=== PATIENT | female | born 1985 | race Caucasian/White ===

== ENCOUNTER 2018-04-06 18:24 | Emergency (ER) | payer OTHER, MEDICAID, SELFPAY ==
[2018-04-06 18:31] VITALS: BP 124/80; PULSE 79; RESP 20; O2SAT 100
[2018-04-06] MEDS: diazePAM 2 MG TABLET PO (20:26)
[2018-04-06 20:59] VITALS: BP 116/54; PULSE 81; RESP 14; O2SAT 100
--- NOTE | 2018-04-13 18:39 | ED.PSYCH ---
HPI - Psych General Chief Complaint: Psychiatric Symptoms Stated Complaint: DEPRESSION Time Seen by Provider: 04/06/18 18:43 Source: patient Mode of arrival: ambulatory Limitations: no limitations History of Present Illness HPI Narrative: patient states that she has been feeling depressed and anxious since losing her this past winter. She states that she feels overwhelmed sometimes as a working single mother. She states that she does not feel she needs inpatient management, but needs more resources as an outpatient. She would like to see a mental health professional. Patient states that even small things, like having to go through all of her late 's things, have been weighing on her. She states she does have a supportive jewish and two supportive pastors, but she feels bad asking people for help. Patient denies any suicide attempts. She denies serious thoughts of suicide. MD complaint: feels depressed Relieving factors: none ( patient does note that her child is a preventative factor) Context: other ( see above) Associated symptoms: denies other symptoms Treatments prior to arrival: none Related Data Home Medications Medication Instructions Recorded Confirmed sertraline 100 mg PO QDAY #0 09/09/17 Previous Rx's Medication Instructions Recorded diazepam [Valium] 5 mg PO Q8H #14 tab 04/06/18 Allergies Allergy/AdvReac Type Severity Reaction Status Date / Time penicillin G [PENICILLIN G] Allergy Unknown Unverified 11/10/17 12:28 sulfamethoxazole Allergy Unknown Unverified 11/10/17 12:28 [From ] trimethoprim [From ] Allergy Unknown Unverified 11/10/17 12:28 Review of Systems Review of Systems All systems reviewed & are unremarkable except as noted in HPI and below Constitutional Denies chills, Denies fever(s), Denies lethargy and Denies weakness Eyes Denies change in vision, Denies eye discharge, Denies irritation and Denies loss of vision ENT Ears, Nose, Mouth, and Throat: Denies change in voice, Denies neck pain and Denies sore throat Cardiovascular Denies chest pain, Denies irregular heart rhythm, Denies lightheadedness, Denies palpitations, Denies dyspnea, Denies dyspnea on exertion and Denies orthopnea Respiratory Denies cough, Denies dyspnea, Denies dyspnea on exertion and Denies wheezing Gastrointestinal Gastrointestinal: Denies abdominal pain, Denies change in bowel habits, Denies diarrhea, Denies nausea and Denies vomiting Genitourinary Denies hematuria, Denies flank pain, Denies urinary incontinence and Denies urinary urgency Musculoskeletal Denies neck pain Integumentary/Breasts Denies pruritus, Denies erythema, Denies rash and Denies wounds Neurologic Denies confusion, Denies loss of vision and Denies weakness Psychiatric Reports anxiety, Denies confusion, Reports depression, Denies homicidal ideation and Denies suicidal ideation Endocrine Denies palpitations Hematologic/Lymphatic Denies easy bruising Allergic/Immunologic Denies wheezing [facility] Medical History Depression (Acute) Anxiety (Acute) Surgical History No pertinent past surgical history (Acute) Social History Smoking Status: Former smoker Exam Initial Vital Signs Initial Vital Signs: Vital Signs Pulse Rate 79 04/06/18 18:31 Respiratory Rate 20 04/06/18 18:31 Blood Pressure 124/80 04/06/18 18:31 Pulse Oximetry 100 04/06/18 18:31 Const General: cooperative and well developed Nutritional Appearance: well nourished Orientation: alert, awake, oriented x3 and not confused HENGA Head: normocephalic and atraumatic Ears: external ears normal Nose: external nose normal and No nasal discharge Face and sinus: face symmetric and No dry mucous membranes Mouth: oral mucosae normal and moist mucous membranes Eyes General: appearance normal, both eyes and all related structures Eyelids: eyelids normal Conjunctivae: conjunctivae normal Sclera: sclerae normal Pupils: PERRL EOM: EOM intact bilaterally Neck Neck: normal visual inspection, trachea midline, No lymphadenopathy, No midline deformity and No JVD Lymphatic: No lymphedema Chest Chest: normal inspection of the chest Resp Effort & Inspection: normal respiratory effort, able to speak in complete sentences, no respiratory distress and no use of accessory muscles Auscultation: clear to auscultation bilaterally, no rales, no rhonchi and no wheezes Cardio Rate: regular rate Rhythm: regular rhythm Heart Sounds: no click, no gallops, no murmurs and no rubs Pulses: normal peripheral pulses GI Inspection: non-distended Palpation: soft, no hepatosplenomegaly, No guarding, No pulsatile mass and No tender Auscultation: normal bowel sounds Back/Spine/Pelvis Back: No CVA tenderness Cervical Spine: cervical ROM normal and No pain with cervical ROM Thoracic/Lumbar Spine: thoracic and lumbar spine normal to inspection Skin General: no rashes or lesions noted, No jaundice and No petechiae Neuro General: alert, oriented x3, gait normal and no focal motor deficits Speech: speech normal Extrem General: full ROM, no clubbing, cyanosis or edema, no pedal edema and no calf tenderness Psych Appearance: well kempt Mental Status: mental status grossly normal Attitude: cooperative Thought Content: normal and suicidality Judgment: judgment good Other: The patient is intermittently tearful. Course Course Narrative: I did spend quite a bit of time speaking with this patient about outpatient care options, as well as the need to take advantage of the support she already has. I have discussed with her that she should speak with her pastors about her need to go through her 's things, and see if a group from the jewish would be willing to mobilize and help her under take this task. The patient states she believes her jewish would gladly help her. I have also discussed with her that perhaps if she has an exercise partner, such as her [id number], who she has stated is supportive of her, she will be able to be motivated to get out and get exercise which will also be good for her mental health. We have discussed follow up with [facility] and primary care. Patient is agreeable to all of these plans. Orders Ordered: Discontinued Medications Diazepam (Valium) 2 mg PO NOW ONE Stop: 04/06/18 19:46 Last Admin: 04/06/18 20:26 Dose: 2 mg MDM - Psych Medical Records Attestation: I reviewed the patient's medical records. Discharge Plan Departure Patient Disposition: Home Clinical Impression: Depression, Anxiety Discharge Date/Time: 04/06/18 21:05 Interventions: ED Discharge Assessment Last Done: 04/06/18 20:59 Instructions: DI for Depression -- Adult Activity Restrictions/Additional Instructions: As we have discussed, it may be helpful for you to follow up with a mental health facility that can better served your needs. For now you should continue the medications are on, but you may take Valium as needed for anxiety, especially in the evening. Please reach out to your pastors and family members to help you with some of the other tasks that are causing ongoing stress, as well as for support and beneficial activities such as getting exercise. If at any time you feel that you are danger to yourself, please return to the Emergency Department without delay. Prescriptions: New diazepam [Valium] 2 mg tablet 5 mg PO Q8H Qty: 14 RF: 0 No Action sertraline 100 MG tablet 100 mg PO QDAY Qty: 0 RF: 0 Referrals: [facility] [Provider Group] [facility] [Provider Group] [facility] [Outside] ( Please walk in as soon as possible for an initial intake and evaluation.) Jarrell Denny MD [Non-Staff] - Haylee Pugh DO [Non-Staff] -
--- NOTE | 2018-04-13 18:46 | ED_ITS ---
HPI - Psych General Chief Complaint: Psychiatric Symptoms Stated Complaint: DEPRESSION Time Seen by Provider: 04/06/18 18:43 Source: patient Mode of arrival: ambulatory Limitations: no limitations History of Present Illness HPI Narrative: patient states that she has been feeling depressed and anxious since losing her this past winter. She states that she feels overwhelmed sometimes as a working single mother. She states that she does not feel she needs inpatient management, but needs more resources as an outpatient. She would like to see a mental health professional. Patient states that even small things, like having to go through all of her late 's things, have been weighing on her. She states she does have a supportive christian and two supportive pastors, but she feels bad asking people for help. Patient denies any suicide attempts. She denies serious thoughts of suicide. MD complaint: feels depressed Relieving factors: none ( patient does note that her child is a preventative factor) Context: other ( see above) Associated symptoms: denies other symptoms Treatments prior to arrival: none Related Data Home Medications Medication Instructions Recorded Confirmed sertraline 100 mg PO QDAY #0 09/09/17 Previous Rx's Medication Instructions Recorded diazepam [Valium] 5 mg PO Q8H #14 tab 04/06/18 Allergies Allergy/AdvReac Type Severity Reaction Status Date / Time penicillin G [PENICILLIN G] Allergy Unknown Unverified 11/10/17 12:28 sulfamethoxazole Allergy Unknown Unverified 11/10/17 12:28 [From ] trimethoprim [From ] Allergy Unknown Unverified 11/10/17 12:28 Review of Systems Review of Systems All systems reviewed & are unremarkable except as noted in HPI and below Constitutional Denies chills, Denies fever(s), Denies lethargy and Denies weakness Eyes Denies change in vision, Denies eye discharge, Denies irritation and Denies loss of vision ENT Ears, Nose, Mouth, and Throat: Denies change in voice, Denies neck pain and Denies sore throat Cardiovascular Denies chest pain, Denies irregular heart rhythm, Denies lightheadedness, Denies palpitations, Denies dyspnea, Denies dyspnea on exertion and Denies orthopnea Respiratory Denies cough, Denies dyspnea, Denies dyspnea on exertion and Denies wheezing Gastrointestinal Gastrointestinal: Denies abdominal pain, Denies change in bowel habits, Denies diarrhea, Denies nausea and Denies vomiting Genitourinary Denies hematuria, Denies flank pain, Denies urinary incontinence and Denies urinary urgency Musculoskeletal Denies neck pain Integumentary/Breasts Denies pruritus, Denies erythema, Denies rash and Denies wounds Neurologic Denies confusion, Denies loss of vision and Denies weakness Psychiatric Reports anxiety, Denies confusion, Reports depression, Denies homicidal ideation and Denies suicidal ideation Endocrine Denies palpitations Hematologic/Lymphatic Denies easy bruising Allergic/Immunologic Denies wheezing [facility] Medical History Depression (Acute) Anxiety (Acute) Surgical History No pertinent past surgical history (Acute) Social History Smoking Status: Former smoker Exam Initial Vital Signs Initial Vital Signs: Vital Signs Pulse Rate 79 04/06/18 18:31 Respiratory Rate 20 04/06/18 18:31 Blood Pressure 124/80 04/06/18 18:31 Pulse Oximetry 100 04/06/18 18:31 Const General: cooperative and well developed Nutritional Appearance: well nourished Orientation: alert, awake, oriented x3 and not confused HENVA Head: normocephalic and atraumatic Ears: external ears normal Nose: external nose normal and No nasal discharge Face and sinus: face symmetric and No dry mucous membranes Mouth: oral mucosae normal and moist mucous membranes Eyes General: appearance normal, both eyes and all related structures Eyelids: eyelids normal Conjunctivae: conjunctivae normal Sclera: sclerae normal Pupils: PERRL EOM: EOM intact bilaterally Neck Neck: normal visual inspection, trachea midline, No lymphadenopathy, No midline deformity and No JVD Lymphatic: No lymphedema Chest Chest: normal inspection of the chest Resp Effort & Inspection: normal respiratory effort, able to speak in complete sentences, no respiratory distress and no use of accessory muscles Auscultation: clear to auscultation bilaterally, no rales, no rhonchi and no wheezes Cardio Rate: regular rate Rhythm: regular rhythm Heart Sounds: no click, no gallops, no murmurs and no rubs Pulses: normal peripheral pulses GI Inspection: non-distended Palpation: soft, no hepatosplenomegaly, No guarding, No pulsatile mass and No tender Auscultation: normal bowel sounds Back/Spine/Pelvis Back: No CVA tenderness Cervical Spine: cervical ROM normal and No pain with cervical ROM Thoracic/Lumbar Spine: thoracic and lumbar spine normal to inspection Skin General: no rashes or lesions noted, No jaundice and No petechiae Neuro General: alert, oriented x3, gait normal and no focal motor deficits Speech: speech normal Extrem General: full ROM, no clubbing, cyanosis or edema, no pedal edema and no calf tenderness Psych Appearance: well kempt Mental Status: mental status grossly normal Attitude: cooperative Thought Content: normal and suicidality Judgment: judgment good Other: The patient is intermittently tearful. Course Course Narrative: I did spend quite a bit of time speaking with this patient about outpatient care options, as well as the need to take advantage of the support she already has. I have discussed with her that she should speak with her pastors about her need to go through her 's things, and see if a group from the christian would be willing to mobilize and help her under take this task. The patient states she believes her christian would gladly help her. I have also discussed with her that perhaps if she has an exercise partner, such as her [id number], who she has stated is supportive of her, she will be able to be motivated to get out and get exercise which will also be good for her mental health. We have discussed follow up with [facility] and primary care. Patient is agreeable to all of these plans. Orders Ordered: Discontinued Medications Diazepam (Valium) 2 mg PO NOW ONE Stop: 04/06/18 19:46 Last Admin: 04/06/18 20:26 Dose: 2 mg MDM - Psych Medical Records Attestation: I reviewed the patient's medical records. Discharge Plan Departure Patient Disposition: Home Clinical Impression: Depression, Anxiety Discharge Date/Time: 04/06/18 21:05 Interventions: ED Discharge Assessment Last Done: 04/06/18 20:59 Instructions: DI for Depression -- Adult Activity Restrictions/Additional Instructions: As we have discussed, it may be helpful for you to follow up with a mental health facility that can better served your needs. For now you should continue the medications are on, but you may take Valium as needed for anxiety, especially in the evening. Please reach out to your pastors and family members to help you with some of the other tasks that are causing ongoing stress, as well as for support and beneficial activities such as getting exercise. If at any time you feel that you are danger to yourself, please return to the Emergency Department without delay. Prescriptions: New diazepam [Valium] 2 mg tablet 5 mg PO Q8H Qty: 14 RF: 0 No Action sertraline 100 MG tablet 100 mg PO QDAY Qty: 0 RF: 0 Referrals: [facility] [Provider Group] [facility] [Provider Group] [facility] [Outside] ( Please walk in as soon as possible for an initial intake and evaluation.) Jarrell Denny MD [Non-Staff] - Haylee Pugh DO [Non-Staff] -
== END 2018-04-06 21:05 | disposition home or self-care (01) ==
PROVIDERS: Emergency Provider Emergency Medicine
DX: F32.9 Major depressive disorder, single episode, unspecified (principal); F41.9 Anxiety disorder, unspecified
CPT/HCPCS: 99282; 99283

== ENCOUNTER 2018-05-10 18:43 | Emergency (ER) | payer OTHER, MEDICAID, SELFPAY ==
[2018-05-10 19:06] VITALS: BP 125/61; PULSE 104; RESP 15; TEMP 36.9; O2SAT 100
[2018-05-10 19:57] VITALS: BP 105/53; PULSE 108; RESP 16; O2SAT 98
--- NOTE | 2018-05-10 20:04 | ED_ITS ---
HPI - URI/Sore Throat <Jody Lozano PA-C - Last Filed: 05/10/18 20:31> General Chief Complaint: Dizziness Stated Complaint: lighthead,dizzy,congested Time Seen by Provider: 05/10/18 18:53 Source: patient Mode of arrival: ambulatory Limitations: no limitations History of Present Illness HPI Narrative: This 33-year-old female comes in due to sinus and nasal congestion with some facial pain. She states that this was making her feel lightheaded this morning. She states that on Wednesday, this started with nasal congestion and she has also had some sore throat and dry cough. 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 She has continued to have congestion, and started to developed pain in her frontal area along with feeling dizzy/off balance and somewhat weak today. She states that she has not had much appetite, she thinks due to the congestion. She denies any fever, chills, sweats. She denies any new tooth pain. She denies any earache. She denies any wheeze, dyspnea, new rashes, or other known exposures. She reports that she is generally healthy. She does breast-feed. Chart notes history of allergy to penicillin however she states that she thinks she had upset stomach with taking penicillin, but has had amoxicillin or Augmentin in the past she thinks without problems. She has never had any rash or dyspnea with penicillin. Related Data Home Medications Medication Instructions Recorded Confirmed sertraline 100 mg PO QDAY #0 09/09/17 Previous Rx's Medication Instructions Recorded diazepam [Valium] 5 mg PO Q8H #14 tab 04/06/18 amoxicillin-pot clavulanate 1 tab PO Q12H #14 tab 05/10/18 [Augmentin] Allergies Allergy/AdvReac Type Severity Reaction Status Date / Time penicillin G [PENICILLIN G] Allergy Unknown Verified 05/10/18 19:06 sulfamethoxazole Allergy Unknown Verified 05/10/18 19:06 [From ] trimethoprim [From ] Allergy Unknown Verified 05/10/18 19:06 Exam <Jody Lozano PA-C - Last Filed: 05/10/18 20:31> Narrative Exam Narrative: GENERAL APPEARANCE: Patient sitting comfortably, in no distress. HEAD: Mild frontal tenderness, more on the left, no maxillary tenderness EYES: PERRL, EOMI. EARS: Normal auditory canals, TMS intact with normal light reflexes. ORAL CAVITY: Normal oropharynx. THROAT: Mild erythema, no exudate, PND noted NECK/THYROID: Neck supple, full range of motion, shoddy anterior cervical lymphadenopathy. LUNGS: Clear to auscultation bilaterally, no cough on exam. HEART: RRR without murmur, nl S1, S2, no S3 or S4. Initial Vital Signs Initial Vital Signs: Vital Signs Temperature 98.5 F 05/10/18 19:06 Pulse Rate 104 H 05/10/18 19:06 Respiratory Rate 15 05/10/18 19:06 Blood Pressure 125/61 05/10/18 19:06 Pulse Oximetry 100 05/10/18 19:06 <Smith Arguelles DO - Last Filed: 05/11/18 00:00> Initial Vital Signs Initial Vital Signs: Vital Signs Temperature 98.5 F 05/10/18 19:06 Pulse Rate 104 H 05/10/18 19:06 Respiratory Rate 15 05/10/18 19:06 Blood Pressure 125/61 05/10/18 19:06 Pulse Oximetry 100 05/10/18 19:06 Course <Jody Lozano PA-C - Last Filed: 05/10/18 20:31> Vital Signs - 8 hr 05/10/18 19:06 05/10/18 19:57 Temperature 98.5 F Pulse Rate 104 H 108 H Respiratory Rate 15 16 Blood Pressure 125/61 105/53 L Pulse Oximetry 100 98 <DO Brian Drake Last Filed: 05/11/18 00:00> Vital Signs - 8 hr 05/10/18 19:06 05/10/18 19:57 Temperature 98.5 F Pulse Rate 104 H 108 H Respiratory Rate 15 16 Blood Pressure 125/61 105/53 L Pulse Oximetry 100 98 Discharge Plan Departure Patient Disposition: Home Clinical Impression: Sinusitis Discharge Date/Time: 05/10/18 19:58 Interventions: ED Discharge Assessment Last Done: 05/10/18 19:57 Instructions: DI for Sinusitis Activity Restrictions/Additional Instructions: Most of the time, sinus infections are caused by viruses. These will typically resolve on their own with a little time and supportive medicines as you have been using. This is more likely since you have been exposed to numerous illnesses at daycare. It would be safe to use the over the counter antihistamine Claritin to help with sinus drainage. Be careful to check with your pharmacist prior to using other medicines since you are still . I have given you a prescription to fill if you are not starting to get better in the next week or if you start to have more localized sinus pain or new symptoms such as fever or new tooth pain. Please return right away if you have any acutely worsening symptoms, and follow up with your PCP if you are not feeling better Prescriptions: New amoxicillin-pot clavulanate [Augmentin] 875-125 mg tablet 1 tab PO Q12H Qty: 14 RF: 0 No Action sertraline 100 MG tablet 100 mg PO QDAY Qty: 0 RF: 0 diazepam [Valium] 2 mg tablet 5 mg PO Q8H Qty: 14 RF: 0 Referrals: [facility], Internal Medicine [Other] <Smith Arguelles DO - Last Filed: 05/11/18 00:00> [facility] Attending Kalebature Attestation: I was immediately available in the department for consultation. Documentation has been reviewed. I agree with assessment and plan.
--- NOTE | 2018-05-12 19:13 | PC.NURSE ---
Place f/u phone call. pt reports continues with sinus pain and pressure. Encouraged to schedule f/u appt with pcp. Has no questions about discharge instructions. Denies any complaints of visit.
== END 2018-05-10 19:58 | disposition home or self-care (01) ==
PROVIDERS: Emergency Provider Internal Medicine
DX: J32.9 Chronic sinusitis, unspecified (principal)
CPT/HCPCS: 99282

== ENCOUNTER 2018-10-04 18:56 | Emergency (ER) | payer OTHER, MEDICAID, SELFPAY ==
[2018-10-04 19:07] VITALS: BP 119/70; PULSE 89; RESP 16; TEMP 36.9; O2SAT 99
--- NOTE | 2018-10-04 19:07 | ED.UPPEXIN ---
HPI - Extremity Injury (Upper) <EVELIO Kay - Last Filed: 10/04/18 22:17> General Chief Complaint: Skin/Abscess/Foreign Body Stated Complaint: FEELS LIKE CUTS ON HAND Time Seen by Provider: 10/04/18 19:04 Source: patient Mode of arrival: ambulatory Limitations: no limitations History of Present Illness HPI narrative: 33-year-old female with history of left forearm amputation and is a former smoker here for complaint of pain and rash to her right hand. She reports she woke up with the pain into her hand that she feels as if she has many cuts to her right hand. She denies any trauma to the right hand. She does state that she has had a cold/flu like illness over the past week. She denies any pain into her mouth or the soles of her feet. She has not had a fever in the last couple of days. Positive p.o. intake. No nausea or vomiting. She does work at a daycare. She denies any stressors or relievers or symptoms. Related Data Home Medications Medication Instructions Recorded Confirmed sertraline 100 mg PO QDAY #0 09/09/17 Previous Rx's Medication Instructions Recorded diazepam [Valium] 5 mg PO Q8H #14 tab 04/06/18 amoxicillin-pot clavulanate 1 tab PO Q12H #14 tab 05/10/18 [Augmentin] Allergies Allergy/AdvReac Type Severity Reaction Status Date / Time penicillin G [PENICILLIN G] Allergy Unknown Verified 05/10/18 19:06 sulfamethoxazole Allergy Unknown Verified 05/10/18 19:06 [From APRRA] trimethoprim [From APRRA] Allergy Unknown Verified 05/10/18 19:06 Review of Systems <EVELIO Kay - Last Filed: 10/04/18 22:17> Constitutional Denies chills, Denies fever(s), Denies lethargy and Denies weakness Eyes Denies change in vision, Denies eye discharge, Denies irritation and Denies loss of vision ENT Ears, Nose, Mouth, and Throat: Denies change in voice, Denies neck pain, Denies sore throat and Denies throat swelling Cardiovascular Denies chest pain, Denies irregular heart rhythm, Denies lightheadedness, Denies palpitations and Denies orthopnea Respiratory Denies wheezing Gastrointestinal Gastrointestinal: Denies abdominal pain, Denies change in bowel habits, Denies diarrhea, Denies nausea and Denies vomiting Genitourinary Denies hematuria, Denies flank pain, Denies urinary incontinence and Denies urinary urgency Musculoskeletal Denies neck pain Comments: Pain and rash to right hand Integumentary/Breasts Denies pruritus, Denies erythema, Denies rash and Denies wounds Neurologic Denies confusion, Denies loss of vision and Denies weakness Psychiatric Denies anxiety, Denies confusion, Denies depression, Denies homicidal ideation and Denies suicidal ideation Endocrine Denies palpitations Hematologic/Lymphatic Denies easy bruising Allergic/Immunologic Denies urticaria, Denies throat swelling and Denies wheezing PFSH <EVELIO Kay - Last Filed: 10/04/18 22:17> Medical History Depression (Chronic) Anxiety (Inactive) Depression (Inactive) Surgical History No pertinent past surgical history (Chronic) Social History Smoking Status: Former smoker Social History Smoking Status: Former smoker Exam <EVELIO Kay - Last Filed: 10/04/18 22:17> Initial Vital Signs Initial Vital Signs: Vital Signs Temperature 98.4 F 10/04/18 19:07 Pulse Rate 89 10/04/18 19:07 Respiratory Rate 16 10/04/18 19:07 Blood Pressure 119/70 10/04/18 19:07 Pulse Oximetry 99 10/04/18 19:07 Const General: cooperative and well developed Nutritional Appearance: well nourished Orientation: alert, awake, oriented x3 and not confused HENMT Mouth: oral mucosae normal and moist mucous membranes Throat: posterior oropharynx normal Eyes Conjunctivae: conjunctivae normal Sclera: sclerae normal Pupils: PERRL EOM: EOM intact bilaterally Resp Effort & Inspection: normal respiratory effort, able to speak in complete sentences, no respiratory distress and no use of accessory muscles Auscultation: clear to auscultation bilaterally, no rales, no rhonchi and no wheezes Cardio Rate: regular rate Rhythm: regular rhythm Heart Sounds: no click, no gallops, no murmurs and no rubs Pulses: normal peripheral pulses Skin General: no rashes or lesions noted, No jaundice and No petechiae Extrem Other: erythematous vesicular rash to the palm of the right hand and into the dorsal fingers. No open lesions. Distal sensation is intact. Full range of motion. Distal pulses are intact. Bilateral feet with no rash apparent. Erythematous papules to the distal left extremity <Carson Clarke MD - Last Filed: 10/05/18 02:46> Initial Vital Signs Initial Vital Signs: Vital Signs Temperature 98.4 F 10/04/18 19:07 Pulse Rate 89 10/04/18 19:07 Respiratory Rate 16 10/04/18 19:07 Blood Pressure 119/70 10/04/18 19:07 Pulse Oximetry 99 10/04/18 19:07 Course <EVELIO Kay - Last Filed: 10/04/18 22:17> Vital Signs - 8 hr 10/04/18 19:07 Temperature 98.4 F Pulse Rate 89 Respiratory Rate 16 Blood Pressure 119/70 Pulse Oximetry 99 <Carson Clarke MD - Last Filed: 10/05/18 02:46> Vital Signs - 8 hr 10/04/18 19:07 Temperature 98.4 F Pulse Rate 89 Respiratory Rate 16 Blood Pressure 119/70 Pulse Oximetry 99 MDM - Extremity Injury (Upper) <EVELIO Kay - Last Filed: 10/04/18 22:17> MDM Narrative Medical decision making narrative: Vesicular rash to right hand appears as a viral exanthem. differential of herpes zoster however doubtful due to the fact that it crosses multiple dermatomes and that appears that she is starting to have a similar rash to her distal left extremity. Viral exanthema also fits for diagnosis due to her recent viral illness. [id number] Tylenol or Motrin as needed for discomfort. Follow up with primary care provider. Return emergency room for any worsening symptoms. Discharge Plan Departure Patient Disposition: Home Clinical Impression: Viral exanthem Discharge Date/Time: 10/04/18 19:37 Interventions: ED Discharge Assessment Last Done: 10/04/18 19:37 Instructions: DI for Rash Activity Restrictions/Additional Instructions: signs and symptoms presents as a rash secondary to a viral illness. Supportive care with Tylenol or Motrin as needed for any discomfort. And tincture of time for virus to resolve. Follow up with your primary care provider. Return emergency room for any worsening symptoms. Prescriptions: No Action sertraline 100 MG tablet 100 mg PO QDAY Qty: 0 RF: 0 diazepam [Valium] 2 mg tablet 5 mg PO Q8H Qty: 14 RF: 0 amoxicillin-pot clavulanate [Augmentin] 875-125 mg tablet 1 tab PO Q12H Qty: 14 RF: 0 Referrals: [facility] [Provider Group] <Carson Clarke MD - Last Filed: 10/05/18 02:46> Cosign ED Attending Coscodyature Attestation: I was present in the ER at the time this patient's care. I was available for verbal consultation or to see the patient directly if requested. I agree with the assessment and management plan.
== END 2018-10-04 19:37 | disposition home or self-care (01) ==
PROVIDERS: Emergency Provider Nurse Practitioner Family
DX: B09 Unspecified viral infection characterized by skin and mucous membrane lesions (principal)
CPT/HCPCS: 99282

== ENCOUNTER 2018-11-23 10:18 | Emergency (ER) | payer OTHER, MEDICAID, SELFPAY ==
[2018-11-23 10:38] VITALS: BP 120/74; PULSE 67; RESP 16; TEMP 36.4; O2SAT 98; BMI 22.7
--- NOTE | 2018-11-23 10:46 | ED_ITS ---
HPI - Abdominal Pain General Chief Complaint: Abdominal Pain Stated Complaint: Nasuea,abdominal pain,breathing with sharp pains Time Seen by Provider: 11/23/18 10:40 Source: patient Mode of arrival: ambulatory Limitations: no limitations History of Present Illness HPI narrative: Patient is a 33-year-old female presents with abdominal pain and nausea. She has a history of Hodgkin's lymphoma which is in remission for the last years. She over the last week or so has been feeling nauseous almost every day and every time she eats something. Her last menstrual cycle was last month she denies any possibility of being . This morning she developed some lower abdominal pain more in the center not really on the right or left side. No fever no vomiting. She also suffers from depression a PD has had thoughts of suicide in the past does not have any thoughts now. She is waiting to get her medication changed by her therapist/psychiatrist is however that is in 1-2 weeks. She does not have any suicidal now. No painful or frequent urination. MD complaint: abdominal pain Related Data Home Medications Medication Instructions Recorded Confirmed sertraline 100 mg PO QDAY #0 09/09/17 Previous Rx's Medication Instructions Recorded diazepam [Valium] 5 mg PO Q8H #14 tab 04/06/18 amoxicillin-pot clavulanate 1 tab PO Q12H #14 tab 05/10/18 [Augmentin] ondansetron 4 mg PO Q6-8H PRN #14 tab 11/23/18 Allergies Allergy/AdvReac Type Severity Reaction Status Date / Time penicillin G [PENICILLIN G] Allergy Unknown Verified 11/23/18 10:38 sulfamethoxazole Allergy Unknown Verified 11/23/18 10:38 [From ] trimethoprim [From ] Allergy Unknown Verified 11/23/18 10:38 Review of Systems Review of Systems ROS Unobtainable: All systems reviewed & are unremarkable except as noted in HPI and below Constitutional Denies chills, Denies fever(s), Denies lethargy and Denies weakness Cardiovascular Denies chest pain, Denies irregular heart rhythm, Denies lightheadedness, Denies palpitations, Denies dyspnea, Denies dyspnea on exertion and Denies orthopnea Respiratory Denies cough, Denies dyspnea, Denies dyspnea on exertion and Denies wheezing Gastrointestinal Gastrointestinal: Reports abdominal pain, Denies diarrhea, Reports nausea and Denies vomiting Genitourinary Denies hematuria, Denies flank pain, Denies urinary incontinence and Denies urinary urgency Neurologic Denies weakness Psychiatric Reports anxiety and Reports depression Endocrine Denies palpitations Allergic/Immunologic Denies wheezing ON LICENSE OF [facility] Medical History (Updated 11/23/18 @ 12:59 by Jolene Sánchez DO) Depression (Chronic) Hodgkin lymphoma (Resolved) Anxiety (Inactive) Depression (Inactive) Surgical History No pertinent past surgical history (Chronic) Social History Smoking Status: Former smoker Social History Smoking Status: Former smoker Exam Initial Vital Signs Initial Vital Signs: Vital Signs Temperature 97.6 F 11/23/18 10:38 Pulse Rate 67 11/23/18 10:38 Respiratory Rate 16 11/23/18 10:38 Blood Pressure 120/74 11/23/18 10:38 Pulse Oximetry 98 11/23/18 10:38 GENERAL: Well-appearing, well-nourished and in no acute distress. HEENT: Head atraumatic,EOMI, pupils reactive, face symmetric, moist mucous membranes CARDIOVASCULAR: Regular rate and rhythm without murmurs, rubs or gallops. RESPIRATORY: Breath sounds equal bilaterally, no wheezes rales or rhonchi. ABDOMEN: Soft, lower suprapubic pain no guarding no rebound EXTREMITIES: Normal range of motion, no clubbing or edema. Neurovascularly intact. left below the elbow amputation NEUROLOGICAL: Alert and oriented x4.Normal gait and speech. Cranial nerves II through XII grossly intact. SKIN: Warm, dry, no laceration, no petechiae, no rashes or lesions. Course Orders Ordered: ED Orders 11/23/18 10:58 US pelvic complete Stat 11/23/18 12:09 Complete Blood Count AUTO DIFF Stat Comprehensive Metabolic Panel Stat Vital Signs - 8 hr 11/23/18 10:38 11/23/18 11:35 11/23/18 13:05 Temperature 97.6 F Pulse Rate 67 86 84 Respiratory Rate 16 16 16 Blood Pressure 120/74 Blood Pressure [Left Arm] 106/75 101/64 Pulse Oximetry 98 100 100 MDM - Abdominal Pain Lab Data Attestation: I reviewed the patient's lab results. Result diagrams: 11/23/18 12:09 11/23/18 12:09 Lab Results 11/23/18 11/23/18 Range/Units 12:09 12:09 WBC 9.9 (4.5-11.0) X10^3/uL RBC 4.05 (4.0-5.2) X10^6/uL Hgb 12.4 (12.0-16.0) g/dL Hct 37.2 (36-46) % MCV 91.8 (80-100) fL MCH 30.6 (26-34) PG MCHC 33.3 (30-36) % RDW 14.0 (11.6-14.8) % Plt Count 358 (150-400) X10^3/uL Neut % (Auto) 58.1 (50-75) % Lymph % (Auto) 29.7 (25-40) % [place] % (Auto) 6.3 (3-14) % Eos % (Auto) 4.8 H (2-4) % Baso % (Auto) 1.1 (0-2) % Neut # (Auto) 5700 (5037-5320) /uL Lymph # (Auto) 2900 (3612-9725) /uL [place] # (Auto) 600 (0-900) /uL Eos # (Auto) 500 H (0-450) /uL Baso # (Auto) 100 (0-100) /uL Sodium 140 (137-145) mmol/L Potassium 4.1 (3.4-5.1) mmol/L Chloride 104 (98-107) mmol/L Carbon Dioxide 27 (22-32) mmol/L BUN 11 (7-17) mg/dL Creatinine 0.60 (0.52-1.04) mg/dL Estimated GFR > 60.0 (>60) mL/min BUN/Creatinine Ratio 18.3 (6-22) Glucose 98 (70-100) mg/dL Calcium 9.6 (8.4-10.2) mg/dL Total Bilirubin 1.2 (0.2-1.3) mg/dL AST 20 (14-36) IU/L ALT 17 (9-52) IU/L Alkaline Phosphatase 50 (38-126) U/L Total Protein 7.4 (6.3-8.2) g/dL Albumin 4.4 (3.5-5.0) g/dL Globulin 3.0 (1.7-4.1) g/dL Albumin/Globulin Ratio 1.5 (1.0-2.8) Point of care testing: Point of Care Testing Test Results Negative Urine Dip Bedside Urine Glucose 100 mg/dl Bedside Urine Bilirubin - Negative Bedside Urine Ketone - Negative Urine Specific [place] 1.015 Bedside Urine Occult Blood - Negative Bedside Urine pH 7.0 Bedside Urine Protein +/- 15 Bedside Urine Urobilinogen +/- 1mg Bedside Urine Nitrite - Negative Bedside Urine Leukocytes +/- 15 Esterase Imaging Data US Pelvis: Radiologist's impression: PROCEDURE: US PELVIC COMPLETE INDICATIONS: PELVIC PAIN TECHNIQUE: Real-time scanning was performed of the pelvic organs, with image documentation. Additional endovaginal scanning was necessary due to incomplete visualization of the adnexal and endometrial structures by transabdominal scanning. COMPARISON: [facility], CT, CT CHEST ABDOMEN PELVIS WITH CONTRAST, 10/25/2018, 10:43. FINDINGS: Transabdominal scanning: Limited scanning through the kidneys shows no hy dronephrosis. No pathologic free abdominal or pelvic fluid. Endovaginal scanning: Uterus: Uterus is normal in size at 8.5 x 4.7 x 5.6 cm. The endometrium measures 11 mm in combined thickness. No focal myometrial lesions are evident. Ovaries: The right ovary measures 3.4 x 1.5 x 2.0 cm. The left ovary measures 3.6 x 2.4 x 2.9 cm. Both ovaries are normal in size without cystic or solid mass. A 2.0 cm left ovarian cyst is present containing layering debris, which may represent a hemorrhagic cyst. Small amount of free fluid is seen within the pelvis. IMPRESSION: 1. Probable small left ovarian hemorrhagic cyst. The need for follow up imaging may be determined clinically. 2. Unremarkable right ovary and uterus. Dictated by: Adal Salinas M.D. on 11/23/2018 at 10:53 MDM Narrative Medical decision making narrative: Patient's biggest complaint is feeling nauseated. She Is not sure if this is her menstrual changing. She does have some ovarian cysts. She has had recent scans for Hodgkin's lymphoma 1 month ago which were negative. We initially talked about CT verge is just possibly pelvic ultrasound. At this time she requests of pelvic ultrasound which I think is reasonable. She is not grossly tender on her abdomen. I do recommend that if her symptoms do not improve that she be least stay on. She states that she is noted to be starting her menstrual cycle next few days. Discharge Plan Departure Patient Disposition: Home Clinical Impression: Ovarian cyst Qualifiers: Laterality: left Qualified Code(s): N83.202 - Unspecified ovarian cyst, left side Discharge Date/Time: 11/23/18 13:01 Interventions: ED Discharge Assessment Last Done: 11/23/18 13:01 Instructions: DI for Ovarian Cyst Activity Restrictions/Additional Instructions: *You have been diagnosed with ovarian cyst *What to do: Recommend repeat ultrasound in 6-8 weeks with her PCP *Continue to take medications as directed Zofran 4 mg every 6-8 hours if needed for nausea vomiting *Follow up with your primary care provider in 2-3 days *Return to ER if you should have increasing pain, persistent nausea or persistent vomiting or any new, worsening or concerning symptoms Prescriptions: New ondansetron 4 mg tablet,disintegrating 4 mg PO Q6-8H PRN (Reason: nausea and vomiting) Qty: 14 RF: 0 No Action sertraline 100 MG tablet 100 mg PO QDAY Qty: 0 RF: 0 diazepam [Valium] 2 mg tablet 5 mg PO Q8H Qty: 14 RF: 0 amoxicillin-pot clavulanate [Augmentin] 875-125 mg tablet 1 tab PO Q12H Qty: 14 RF: 0
--- NOTE | 2018-11-23 10:58 | DI.US.S_ITS ---
PROCEDURE: US PELVIC COMPLETE INDICATIONS: PELVIC PAIN TECHNIQUE: Real-time scanning was performed of the pelvic organs, with image documentation. Additional endovaginal scanning was necessary due to incomplete visualization of the adnexal and endometrial structures by transabdominal scanning. COMPARISON: [facility], CT, CT CHEST ABDOMEN PELVIS WITH CONTRAST, 10/25/2018, 10:43. FINDINGS: Transabdominal scanning: Limited scanning through the kidneys shows no hydronephrosis. No pathologic free abdominal or pelvic fluid. Endovaginal scanning: Uterus: Uterus is normal in size at 8.5 x 4.7 x 5.6 cm. The endometrium measures 11 mm in combined thickness. No focal myometrial lesions are evident. Ovaries: The right ovary measures 3.4 x 1.5 x 2.0 cm. The left ovary measures 3.6 x 2.4 x 2.9 cm. Both ovaries are normal in size without cystic or solid mass. A 2.0 cm left ovarian cyst is present containing layering debris, which may represent a hemorrhagic cyst. Small amount of free fluid is seen within the pelvis. IMPRESSION: 1. Probable small left ovarian hemorrhagic cyst. The need for follow up imaging may be determined clinically. 2. Unremarkable right ovary and uterus. Dictated by: Adal Salinas M.D. on 11/23/2018 at 10:53 Approved by: Adal Salinas M.D. on 11/23/2018 at 10:55
[2018-11-23 11:35] VITALS: BP 106/75; PULSE 86; RESP 16; O2SAT 100
--- NOTE | 2018-11-23 11:39 | PC.NURSE ---
report, nausea for 2 weeks, today with bilateral lower abdominal discomfort. menses due a week from now. denies fever or vomiting, normal bm today.
[2018-11-23 12:19] LABS: Add Manual Diff / Slide Review NO; Basophils Absolute Auto 100 /uL (0-100); Basophils Percent Auto 1.1 % (0-2); Eosinophils Absolute Auto 500 /uL (0-450); Eosinophils Percent Auto 4.8 % (2-4); Hematocrit 37.2 % (36-46); Hemoglobin 12.4 g/dL (12.0-16.0); Lymphocytes Absolute Auto 2900 /uL (1100-4500); Lymphocytes Percent Auto 29.7 % (25-40); Mean Corpuscular HGB Conc 33.3 % (30-36); Mean Corpuscular Hemoglobin 30.6 PG (26-34); Mean Corpuscular Volume 91.8 fL (80-100); Monocytes Absolute Auto 600 /uL (0-900); Monocytes Percent Auto 6.3 % (3-14); Neutrophils Absolute Auto 5700 /uL (1500-7000); Neutrophils Percent Auto 58.1 % (50-75); Platelet Count 358 X10^3/uL (150-400); Red Blood Cell Count 4.05 X10^6/uL (4.0-5.2); White Blood Cell Count 9.9 X10^3/uL (4.5-11.0)
[2018-11-23 12:30] LABS: Alanine Aminotransferase 17 IU/L (9-52); Albumin 4.4 g/dL (3.5-5.0); Albumin Globulin Ratio 1.5 (1.0-2.8); Alkaline Phosphatase 50 U/L (38-126); Aspartate Aminotransferase 20 IU/L (14-36); BUN Creatinine Ratio 18.3 (6-22); Bilirubin Total 1.2 mg/dL (0.2-1.3); Blood Urea Nitrogen 11 mg/dL (7-17); Calcium 9.6 mg/dL (8.4-10.2); Carbon Dioxide 27 mmol/L (22-32); Chloride 104 mmol/L (98-107); Estimated Glomerular Filt Rate > 60.0 mL/min (>60); Glucose 98 mg/dL (70-100); HEMOLYSIS < 15 (0-50); Potassium 4.1 mmol/L (3.4-5.1); Sodium 140 mmol/L (137-145); Total Protein 7.4 g/dL (6.3-8.2)
[2018-11-23 13:05] VITALS: BP 101/64; PULSE 84; RESP 16; O2SAT 100
== END 2018-11-23 13:01 | disposition home or self-care (01) ==
PROVIDERS: Emergency Provider Emergency Medicine
DX: N83.202 Unspecified ovarian cyst, left side (principal); R11.0 Nausea; R10.30 Lower abdominal pain, unspecified
CPT/HCPCS: 36415; 76830; 76856; 80053; 81003; 81025; 85025; 99282; 99284

== ENCOUNTER 2019-02-24 20:54 | Emergency (ER) | payer OTHER, MEDICAID, SELFPAY ==
[2019-02-24 21:03] VITALS: BP 126/74; PULSE 98; RESP 16; TEMP 37.2; O2SAT 100; BMI 21.4
--- NOTE | 2019-02-24 21:55 | ED.URI ---
HPI - URI/Sore Throat General Chief Complaint: Upper Respiratory Symptoms Stated Complaint: fatigue,nausea,dizzy,migraines,muscle aches Time Seen by Provider: 02/24/19 20:58 Source: patient Mode of arrival: ambulatory Limitations: no limitations History of Present Illness HPI Narrative: 33-year-old female former smoker with history of lymphoma presents with a chief complaint of a few days of feeling generally poor. She has little in the way of specific complaints but complains of a vague headache, subjective fever, fatigue and poor appetite. She denies any chest pain or shortness of breath nor does she have any abdominal pain or change in bowel habits. She states there has been a significant amount of stress in her life as her mother was recently diagnosed with cancer. She admittedly has not been sleeping nor has she been eating and drinking with any regularity. 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 MD Complaint: fever Onset (ago): day(s) Duration: constant Severity: moderate Exacerbating factors: nothing Associated symptoms: fever, myalgias, nasal congestion and other Related Data Home Medications Medication Instructions Recorded Confirmed clonidine HCl 0.1 mg PO BEDTIME 02/25/19 02/25/19 lorazepam 02/25/19 venlafaxine 150 mg PO DAILY 02/25/19 02/25/19 Allergies Allergy/AdvReac Type Severity Reaction Status Date / Time penicillin G [PENICILLIN G] Allergy Unknown Verified 11/23/18 10:38 sulfamethoxazole Allergy Unknown Verified 11/23/18 10:38 [From ] trimethoprim [From ] Allergy Unknown Verified 11/23/18 10:38 Review of Systems Constitutional Denies chills, Reports fever(s), Reports headache(s), Denies lethargy, Reports malaise and Reports weakness Eyes Denies change in vision, Denies eye discharge, Denies irritation and Denies loss of vision ENT Ears, Nose, Mouth, and Throat: Denies change in voice, Reports headache(s), Denies neck pain and Denies sore throat Cardiovascular Denies chest pain, Denies irregular heart rhythm, Denies lightheadedness, Denies palpitations, Denies dyspnea, Denies dyspnea on exertion and Denies orthopnea Respiratory Denies cough, Denies dyspnea, Denies dyspnea on exertion and Denies wheezing Gastrointestinal Gastrointestinal: Denies abdominal pain, Denies change in bowel habits, Denies diarrhea, Denies nausea and Denies vomiting Genitourinary Denies hematuria, Denies flank pain, Denies urinary incontinence and Denies urinary urgency Musculoskeletal Denies neck pain Integumentary/Breasts Denies pruritus, Denies erythema, Denies rash and Denies wounds Neurologic Denies confusion, Reports headache(s), Denies loss of vision and Reports weakness Psychiatric Denies anxiety, Denies confusion, Denies depression, Denies homicidal ideation and Denies suicidal ideation Endocrine Denies palpitations Hematologic/Lymphatic Denies easy bruising Allergic/Immunologic Denies wheezing [facility] Medical History Depression (Chronic) Hodgkin lymphoma (Resolved) Anxiety (Inactive) Depression (Inactive) Surgical History No pertinent past surgical history (Chronic) Social History Smoking Status: Former smoker Social History Smoking Status: Former smoker Exam Narrative Exam Narrative: GENERAL: 33-year-old female appears stated age, bit anxious in no obvious significant distress HEAD: Atraumatic. Normocephalic. No temporal or scalp tenderness. EYES: Pupils equal round and reactive. Extraocular motions intact. No scleral icterus. No injection or drainage. ENT: Nose without bleeding, purulent drainage or septal hematoma. Throat without erythema, tonsillar hypertrophy or exudate. Uvula midline. Airway patent. NECK: Trachea midline. No JVD or lymphadenopathy. Supple, nontender, no meningeal signs. CARDIOVASCULAR: Regular rate and rhythm without murmurs, gallops, or rubs. RESPIRATORY: Clear to auscultation. Breath sounds equal bilaterally. No wheezes, rales, or rhonchi. GASTROINTESTINAL: Abdomen soft, non-tender, nondistended. No hepato-splenomegaly, or palpable masses. No guarding. EXTREMITIES: No clubbing, cyanosis, or edema. No joint tenderness, effusion, or edema noted. BACK: Nontender without deformity or crepitance. No flank tenderness. NEURO: AOx3. SKIN: No rash or erythema. Initial Vital Signs Initial Vital Signs: Vital Signs Temperature 99 F 07/26/19 21:03 Pulse Rate 98 H 02/24/19 21:03 Respiratory Rate 16 02/24/19 21:03 Blood Pressure 126/74 02/24/19 21:03 Pulse Oximetry 100 02/24/19 21:03 Course Orders Ordered: ED Orders 02/24/19 22:13 Basic Metabolic Panel Stat Complete Blood Count AUTO DIFF Stat Procalcitonin Stat Discontinued Medications Acetaminophen (Tylenol) 975 mg PO NOW ONE Stop: 02/24/19 22:12 Last Admin: 02/24/19 22:13 Dose: 975 mg Sodium Chloride (Normal Saline 0.9%) 1,000 mls @ 1,000 mls/hr IV BOLUS ONE Stop: 02/24/19 22:56 Last Admin: 02/24/19 22:10 Dose: Not Given Ondansetron HCl (Zofran) 4 mg IV Q4HR PRN PRN Reason: Nausea And Vomiting Ondansetron HCl (Zofran) 4 mg IV NOW ONE Stop: 02/24/19 22:07 Last Admin: 02/24/19 22:09 Dose: Not Given Ondansetron HCl (Zofran Odt) 4 mg PO NOW ONE Stop: 02/24/19 22:11 Last Admin: 02/24/19 22:11 Dose: 4 mg Vital Signs - 8 hr 02/24/19 21:03 02/25/19 00:48 Temperature 99 F Pulse Rate 98 H 70 Respiratory Rate 16 18 Blood Pressure 126/74 Blood Pressure [Left Arm] 122/72 Pulse Oximetry 100 98 MDM - URI/Sore Throat Lab Data Result diagrams: 02/24/19 22:13 02/24/19 22:13 Lab Results 02/24/19 02/24/19 02/24/19 Range/Units 22:13 22:13 22:13 WBC 10.6 (4.5-11.0) X10^3/uL RBC 4.05 (4.0-5.2) X10^6/uL Hgb 12.0 (12.0-16.0) g/dL Hct 36.7 (36-46) % MCV 90.6 (80-100) fL MCH 29.6 (26-34) PG MCHC 32.6 (30-36) % RDW 13.9 (11.6-14.8) % Plt Count 369 (150-400) X10^3/uL Neut % (Auto) 48.6 L (50-75) % Lymph % (Auto) 40.3 H (25-40) % [place] % (Auto) 7.4 (3-14) % Eos % (Auto) 2.7 (2-4) % Baso % (Auto) 1.0 (0-2) % Neut # (Auto) 5100 (3072-4089) /uL Lymph # (Auto) 4300 (3739-9001) /uL [place] # (Auto) 800 (0-900) /uL Eos # (Auto) 300 (0-450) /uL Baso # (Auto) 100 (0-100) /uL Sodium 139 (137-145) mmol/L Potassium 3.4 (3.4-5.1) mmol/L Chloride 103 (98-107) mmol/L Carbon Dioxide 28 (22-32) mmol/L BUN 8 (7-17) mg/dL Creatinine 0.50 L (0.52-1.04) mg/dL Estimated GFR > 60.0 (>60) mL/min BUN/Creatinine Ratio 16.0 (6-22) Glucose 89 (70-100) mg/dL Calcium 9.5 (8.4-10.2) mg/dL Procalcitonin < 0.05 (<0.5) ng/mL Point of Care Testing Test Results Negative Urine Dip Bedside Urine Glucose Negative Bedside Urine Bilirubin - Negative Bedside Urine Ketone - Negative Urine Specific [place] 1.025 Bedside Urine Occult Blood - Negative Bedside Urine pH 5.5 Bedside Urine Protein - Negative Bedside Urine Urobilinogen +/- 1mg Bedside Urine Nitrite - Negative Bedside Urine Leukocytes - Negative Esterase MDM Narrative Medical decision making narrative: Multiple etiologies for patient's symptoms considered including: [Electrolyte abnormality versus underlying infection versus fatigue versus anxiety versus depression versus other] Patient's symptoms improved or duration of stay with above-stated therapies. Findings and discharge diagnosis discussed with patient/family followed by verbalization of understanding Return precautions discussed with patient/family whom verbalize understanding. Discharge Plan Departure Patient Disposition: Home Clinical Impression: Feared complaint without diagnosis, Fatigue Discharge Date/Time: 02/25/19 00:49 Interventions: ED Discharge Assessment Last Done: 02/25/19 00:48 Activity Restrictions/Additional Instructions: *You have been diagnosed with [fatigue nausea and muscle aches] *What to do: *Take medications as directed: Tylenol or Motrin for aches and pains *Follow up with your primary care provider in 2-3 days, call for an appointment. Let them know you were seen in the Emergency Department and that we ask that you be seen in follow up *Return to ER if you should have any new, worsening or concerning symptoms Prescriptions: No Action clonidine HCl 0.1 mg tablet 0.1 mg PO BEDTIME RF: 0 venlafaxine 150 mg capsule,extended release 24hr 150 mg PO DAILY RF: 0 lorazepam 1 mg tablet RF: 0
[2019-02-24] MEDS: ONDANSETRON 4 MG ODT PO (22:11)
[2019-02-24] MEDS: ACETAMINOPHEN 325 MG TABLET 975 MG PO (22:13)
[2019-02-24 22:33] LABS: Add Manual Diff / Slide Review NO; Basophils Absolute Auto 100 /uL (0-100); Eosinophils Absolute Auto 300 /uL (0-450); Eosinophils Percent Auto 2.7 % (2-4); Hematocrit 36.7 % (36-46); Lymphocytes Absolute Auto 4300 /uL (1100-4500); Lymphocytes Percent Auto 40.3 % (25-40); Mean Corpuscular HGB Conc 32.6 % (30-36); Mean Corpuscular Hemoglobin 29.6 PG (26-34); Mean Corpuscular Volume 90.6 fL (80-100); Monocytes Absolute Auto 800 /uL (0-900); Monocytes Percent Auto 7.4 % (3-14); Neutrophils Absolute Auto 5100 /uL (1500-7000); Neutrophils Percent Auto 48.6 % (50-75); Platelet Count 369 X10^3/uL (150-400); Red Blood Cell Count 4.05 X10^6/uL (4.0-5.2); Red Cell Distribution Width 13.9 % (11.6-14.8); White Blood Cell Count 10.6 X10^3/uL (4.5-11.0)
[2019-02-24 22:44] LABS: Blood Urea Nitrogen 8 mg/dL (7-17); Calcium 9.5 mg/dL (8.4-10.2); Carbon Dioxide 28 mmol/L (22-32); Chloride 103 mmol/L (98-107); Estimated Glomerular Filt Rate > 60.0 mL/min (>60); Glucose 89 mg/dL (70-100); HEMOLYSIS < 15 (0-50); Potassium 3.4 mmol/L (3.4-5.1); Sodium 139 mmol/L (137-145)
[2019-02-24 22:58] LABS: Procalcitonin < 0.05 ng/mL (<0.5)
[2019-02-25 00:48] VITALS: BP 122/72; PULSE 70; RESP 18; O2SAT 98
== END 2019-02-25 00:49 | disposition home or self-care (01) ==
PROVIDERS: Emergency Provider Emergency Medicine
DX: R53.83 Other fatigue (principal)
CPT/HCPCS: 36415; 80048; 81003; 81025; 84145; 85025; 99282; 99283

== ENCOUNTER 2019-03-02 16:52 | Emergency (ER) | payer OTHER, MEDICAID, SELFPAY ==
[2019-03-02 17:00] VITALS: BP 114/83; PULSE 128; RESP 20; TEMP 37.7; O2SAT 100; BMI 21.2
--- NOTE | 2019-03-02 17:10 | ED_ITS ---
HPI - URI/Sore Throat <Jolene Sánchez DO - Last Filed: 03/03/19 07:13> General Chief Complaint: Fever Stated Complaint: cough, fever Time Seen by Provider: 03/02/19 17:05 Source: patient Mode of arrival: ambulatory Limitations: no limitations History of Present Illness HPI Narrative: Patient is a 33-year-old female presenting with cough and shortness of breath ongoing for a week. She says she has had fevers and chills and sometime shortness of breath. She every time she takes a deep breath she has a coughing episode. She sometimes coughs up stuff. She certainly had sweats and chills. She took Tylenol just prior to arrival. She denies any chest pain or heart palpitations. MD Complaint: fever and cough Duration: intermittent Relieving factors: nothing Treatments prior to arrival: acetaminophen Related Data Home Medications Medication Instructions Recorded Confirmed lorazepam 1 mg PO DAILY PRN 02/25/19 03/02/19 venlafaxine 150 mg PO DAILY 02/25/19 03/02/19 clonidine HCl 0.1 mg PO BEDTIME 03/02/19 03/02/19 Previous Rx's Medication Instructions Recorded hydrocodone-acetaminophen [[place]] 1 tab PO Q6H PRN #10 tab 03/02/19 levofloxacin [Levaquin] 750 mg PO DAILY 6 Days #6 tab 03/02/19 Allergies Allergy/AdvReac Type Severity Reaction Status Date / Time penicillin G [PENICILLIN G] Allergy Unknown Verified 03/02/19 17:47 sulfamethoxazole Allergy Unknown Verified 03/02/19 17:47 [From ] trimethoprim [From ] Allergy Unknown Verified 03/02/19 17:47 Review of Systems <Jolene Sánchez DO - Last Filed: 03/03/19 07:13> Review of Systems ROS Unobtainable: All systems reviewed & are unremarkable except as noted in HPI and below Constitutional Denies chills, Denies fever(s), Denies lethargy and Denies weakness Eyes Denies change in vision, Denies eye discharge, Denies irritation and Denies loss of vision ENT Ears, Nose, Mouth, and Throat: Denies change in voice, Denies neck pain and Denies sore throat Cardiovascular Denies chest pain, Denies irregular heart rhythm, Denies lightheadedness, Denies palpitations and Denies orthopnea Respiratory Reports as per HPI Gastrointestinal Gastrointestinal: Denies abdominal pain, Denies change in bowel habits, Denies diarrhea, Denies nausea and Denies vomiting Genitourinary Denies hematuria, Denies flank pain, Denies urinary incontinence and Denies urinary urgency Musculoskeletal Denies neck pain Integumentary/Breasts Denies pruritus, Denies erythema, Denies rash and Denies wounds Neurologic Denies loss of vision and Denies weakness Endocrine Denies palpitations PFSH <Jolene Sánchez DO - Last Filed: 03/03/19 07:13> Medical History Depression (Chronic) Hodgkin lymphoma (Resolved) Anxiety (Inactive) Depression (Inactive) Surgical History No pertinent past surgical history (Chronic) Social History Smoking Status: Former smoker Social History Smoking Status: Former smoker Exam <Jolene Sánchez DO - Last Filed: 03/03/19 07:13> Initial Vital Signs Initial Vital Signs: Vital Signs Temperature 99.9 F H 03/02/19 17:00 Pulse Rate 128 H 03/02/19 17:00 Respiratory Rate 20 03/02/19 17:00 Blood Pressure 114/83 03/02/19 17:00 Pulse Oximetry 100 03/02/19 17:00 GENERAL: Well-appearing, well-nourished and in no acute distress. HEENT: Head atraumatic,EOMI, pupils reactive, face symmetric, moist mucous membranes PHARYNX: No erythema no uvula deviation no tonsillar exudate CARDIOVASCULAR: Tachycardic regular no murmur RESPIRATORY: No respiratory distress clear bilaterally speaks in full sentences she does have coughing episodes with taking deep breath ABDOMEN: Soft, nontender. Normoactive bowel sounds all 4 quadrants. No guarding or rebound. EXTREMITIES: Normal range of motion, no clubbing or edema. Neurovascularly intact NEUROLOGICAL: Alert and oriented x4.Normal gait and speech. Cranial nerves II through XII grossly intact. SKIN: Warm, dry, no laceration, no petechiae, no rashes or lesions. <Carson Clarke MD - Last Filed: 03/02/19 19:57> Initial Vital Signs Initial Vital Signs: Vital Signs Temperature 99.9 F H 03/02/19 17:00 Pulse Rate 128 H 03/02/19 17:00 Respiratory Rate 20 03/02/19 17:00 Blood Pressure 114/83 03/02/19 17:00 Pulse Oximetry 100 03/02/19 17:00 Course <Jolene Sánchez DO - Last Filed: 03/03/19 07:13> Orders Ordered: Discontinued Medications Hydrocodone Bitart/Acetaminophen ([place] 5/325) 1 tab PO NOW ONE Stop: 03/02/19 19:50 Last Admin: 03/02/19 19:56 Dose: 1 tab Albuterol/Ipratropium (Duoneb) 3 ml INH NOW ONE Stop: 03/02/19 17:19 Last Admin: 03/02/19 17:37 Dose: 3 ml Sodium Chloride (Normal Saline 0.9%) 1,000 mls @ 1,000 mls/hr IV BOLUS ONE Stop: 03/02/19 18:17 Last Admin: 03/02/19 18:29 Dose: Not Given Ketorolac Tromethamine (Toradol) 60 mg IM NOW ONE Stop: 03/02/19 18:15 Last Admin: 03/02/19 18:24 Dose: 60 mg Levofloxacin (Levaquin) 750 mg PO NOW ONE Stop: 03/02/19 19:43 Ondansetron HCl (Zofran Odt) 4 mg SL NOW ONE Stop: 03/02/19 18:09 Last Admin: 03/02/19 18:32 Dose: 4 mg Vital Signs - 8 hr 03/02/19 17:00 03/02/19 17:37 03/02/19 19:10 Temperature 99.9 F H 102 F H Pulse Rate 128 H 89 114 H Respiratory Rate 20 14 Blood Pressure 114/83 Blood Pressure [Right Arm] 102/61 Pulse Oximetry 100 99 95 03/02/19 19:37 Temperature 100 F H Pulse Rate Respiratory Rate Blood Pressure Blood Pressure [Right Arm] Pulse Oximetry <Carson Clarke MD - Last Filed: 03/02/19 19:57> Course Narrative: 7:55PM. 03/02/2019. I assumed care at change of shift from Dr. Sánchez. 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 She has no asthma or allergies, she has no chronic pulmonary disease. She is a nonsmoker. She has been sick with cough for about 2 weeks. Over the past 4 days the cough has increased in severity and become productive. She has subjective fever and body aches. She has back pain, seemingly from the hard coughing. Initial workup was initiated by Dr. right lozada, including lab data and a chest x-ray. Objective: Vitals are reviewed. General patient is alert, no apparent distress. She appears healthy. Oropharynx is normal. Neck is supple. Lungs clear to auscultation throughout. Heart: Regular rate and rhythm without murmur. Radiology and lab data have been reviewed. It is noted the patient was a very difficult IV access. She is not toxic. She has RML pneumonia. She will be treated with oral antibiotics along. She has allergies to penicillins and sulfa antibiotics. I have started on Levaquin 750 mg daily. She also be given a limited supply of [place] for cough and due to redness number back pain from the strain of the co [facility]. Samanta SHULTZ Orders Ordered: Discontinued Medications Hydrocodone Bitart/Acetaminophen ([place] 5/325) 1 tab PO NOW ONE Stop: 03/02/19 19:50 Last Admin: 03/02/19 19:56 Dose: 1 tab Albuterol/Ipratropium (Duoneb) 3 ml INH NOW ONE Stop: 03/02/19 17:19 Last Admin: 03/02/19 17:37 Dose: 3 ml Sodium Chloride (Normal Saline 0.9%) 1,000 mls @ 1,000 mls/hr IV BOLUS ONE Stop: 03/02/19 18:17 Last Admin: 03/02/19 18:29 Dose: Not Given Ketorolac Tromethamine (Toradol) 60 mg IM NOW ONE Stop: 03/02/19 18:15 Last Admin: 03/02/19 18:24 Dose: 60 mg Levofloxacin (Levaquin) 750 mg PO NOW ONE Stop: 03/02/19 19:43 Ondansetron HCl (Zofran Odt) 4 mg SL NOW ONE Stop: 03/02/19 18:09 Last Admin: 03/02/19 18:32 Dose: 4 mg Vital Signs - 8 hr 03/02/19 17:00 03/02/19 17:37 03/02/19 19:10 Temperature 99.9 F H 102 F H Pulse Rate 128 H 89 114 H Respiratory Rate 20 14 Blood Pressure 114/83 Blood Pressure [Right Arm] 102/61 Pulse Oximetry 100 99 95 03/02/19 19:37 Temperature 100 F H Pulse Rate Respiratory Rate Blood Pressure Blood Pressure [Right Arm] Pulse Oximetry MDM - URI/Sore Throat <Jolene Sánchez DO - Last Filed: 03/03/19 07:13> Lab Data Attestation: I reviewed the patient's lab results. Result diagrams: 03/02/19 19:13 03/02/19 19:13 Lab Results 03/02/19 03/02/19 03/02/19 Range/Units 19:13 19:13 19:13 WBC 6.4 (4.5-11.0) X10^3/uL RBC 4.26 (4.0-5.2) X10^6/uL Hgb 12.5 (12.0-16.0) g/dL Hct 38.7 (36-46) % MCV 90.8 (80-100) fL MCH 29.3 (26-34) PG MCHC 32.3 (30-36) % RDW 14.5 (11.6-14.8) % Plt Count 288 (150-400) X10^3/uL Neut % (Auto) 67.8 (50-75) % Lymph % (Auto) 22.6 L (25-40) % [place] % (Auto) 8.4 (3-14) % Eos % (Auto) 0.5 L (2-4) % Baso % (Auto) 0.7 (0-2) % Neut # (Auto) 4400 (4813-2706) /uL Lymph # (Auto) 1500 (2360-2825) /uL [place] # (Auto) 500 (0-900) /uL Eos # (Auto) 0 (0-450) /uL Baso # (Auto) 0 (0-100) /uL Sodium 136 L (137-145) mmol/L Potassium 3.3 L (3.4-5.1) mmol/L Chloride 100 (98-107) mmol/L Carbon Dioxide 27 (22-32) mmol/L BUN 17 (7-17) mg/dL Creatinine 0.60 (0.52-1.04) mg/dL Estimated GFR > 60.0 (>60) mL/min BUN/Creatinine Ratio 28.3 H (6-22) Glucose 91 (70-100) mg/dL Lactate 1.0 (0.7-2.1) mmol/L Calcium 9.5 (8.4-10.2) mg/dL Total Bilirubin 0.3 (0.2-1.3) mg/dL AST 30 (14-36) IU/L ALT 20 (9-52) IU/L Alkaline Phosphatase 54 (38-126) U/L Total Protein 7.4 (6.3-8.2) g/dL Albumin 4.2 (3.5-5.0) g/dL Globulin 3.2 (1.7-4.1) g/dL Albumin/Globulin Ratio 1.3 (1.0-2.8) Imaging Data Chest x-ray: Radiologist's impression: PROCEDURE: XR CHEST 2V INDICATIONS: cough short of breath TECHNIQUE: 2 views of the chest were acquired. COMPARISON: [facility], CT, CT CHEST ABDOMEN PELVIS WITH CONTRAST, 10/25/2018, 10:43. FINDINGS: Surgical changes and devices: None. Lungs and pleura: Lungs are abnormal with what appears to be lung scarring at the right midlung, and no definite mass lesion or pleural effusion. No pleural effusions or pneumothorax. Mediastinum: Mediastinal contours are normal. Heart size is normal. Bones and chest wall: No suspicious bony abnormalities. Soft tissues appear unremarkable. IMPRESSION: Lung scarring right mid lung, possible mild or early pneumonia superimposed. Dictated by: Pilo Ramírez M.D. on 03/02/2019 at 17:42 MDM Narrative Medical decision making narrative: Patient is a hard stick for IV and blood but feeling better after albuterol. Pneumonia on XRAy. waiting for labs. Patent refusing to be stuck any more at this time but agrees to blood draw. Also having some flank pain bilaterally but denies dysuria or urinary frequency. Patient signed out to Dr. Clarke for further management. <Carson Clarke MD - Last Filed: 03/02/19 19:57> Lab Data Lab Results 08/08/2003/02/19 03/02/19 Range/Units 19:13 19:13 19:13 WBC 6.4 (4.5-11.0) X10^3/uL RBC 4.26 (4.0-5.2) X10^6/uL Hgb 12.5 (12.0-16.0) g/dL Hct 38.7 (36-46) % MCV 90.8 (80-100) fL MCH 29.3 (26-34) PG MCHC 32.3 (30-36) % RDW 14.5 (11.6-14.8) % Plt Count 288 (150-400) X10^3/uL Neut % (Auto) 67.8 (50-75) % Lymph % (Auto) 22.6 L (25-40) % [place] % (Auto) 8.4 (3-14) % Eos % (Auto) 0.5 L (2-4) % Baso % (Auto) 0.7 (0-2) % Neut # (Auto) 4400 (5461-2981) /uL Lymph # (Auto) 1500 (3549-7847) /uL [place] # (Auto) 500 (0-900) /uL Eos # (Auto) 0 (0-450) /uL Baso # (Auto) 0 (0-100) /uL Sodium 136 L (137-145) mmol/L Potassium 3.3 L (3.4-5.1) mmol/L Chloride 100 (98-107) mmol/L Carbon Dioxide 27 (22-32) mmol/L BUN 17 (7-17) mg/dL Creatinine 0.60 (0.52-1.04) mg/dL Estimated GFR > 60.0 (>60) mL/min BUN/Creatinine Ratio 28.3 H (6-22) Glucose 91 (70-100) mg/dL Lactate 1.0 (0.7-2.1) mmol/L Calcium 9.5 (8.4-10.2) mg/dL Total Bilirubin 0.3 (0.2-1.3) mg/dL AST 30 (14-36) IU/L ALT 20 (9-52) IU/L Alkaline Phosphatase 54 (38-126) U/L Total Protein 7.4 (6.3-8.2) g/dL Albumin 4.2 (3.5-5.0) g/dL Globulin 3.2 (1.7-4.1) g/dL Albumin/Globulin Ratio 1.3 (1.0-2.8) Imaging Data Chest x-ray: Radiologist's impression: Suggestive of a RML pneumonia. Discharge Plan Departure Patient Disposition: Home Clinical Impression: Pneumonia Qualifiers: Pneumonia type: due to unspecified organism Laterality: right Lung location: middle lobe of lung Qualified Code(s): J18.1 - Lobar pneumonia, unspecified organism Discharge Date/Time: 03/02/19 20:11 Interventions: ED Discharge Assessment Last Done: 03/02/19 20:07 Instructions: DI for Pneumonia -- Adult Activity Restrictions/Additional Instructions: Levaquin 750 mg daily for a total of 7 days. [place] every 4-6 hours as needed for pain/cough. I also recommend Robitussin DM 2 tsp every 4 hr as needed for cough. Follow up with her doctor next week if not improving. Return here if worse. Prescriptions: New hydrocodone-acetaminophen [[place]] 5-325 mg tablet 1 tab PO Q6H PRN (Reason: pain) Qty: 10 RF: 0 levofloxacin [Levaquin] 750 mg tablet 750 mg PO DAILY 6 Days Qty: 6 RF: 0 No Action venlafaxine 150 mg capsule,extended release 24hr 150 mg PO DAILY RF: 0 lorazepam 1 mg tablet 1 mg PO DAILY PRN (Reason: panic attacks) RF: 0 clonidine HCl 0.1 mg tablet 0.1 mg PO BEDTIME RF: 0 Stand Alone Forms: Work Release Note
--- NOTE | 2019-03-02 17:18 | DI.RAD.S_ITS ---
PROCEDURE: XR CHEST 2V INDICATIONS: cough short of breath TECHNIQUE: 2 views of the chest were acquired. COMPARISON: [facility], CT, CT CHEST ABDOMEN PELVIS WITH CONTRAST, 10/25/2018, 10:43. FINDINGS: Surgical changes and devices: None. Lungs and pleura: Lungs are abnormal with what appears to be lung scarring at the right midlung, and no definite mass lesion or pleural effusion. No pleural effusions or pneumothorax. Mediastinum: Mediastinal contours are normal. Heart size is normal. Bones and chest wall: No suspicious bony abnormalities. Soft tissues appear unremarkable. IMPRESSION: Lung scarring right mid lung, possible mild or early pneumonia superimposed. Dictated by: Pilo Ramírez M.D. on 03/02/2019 at 17:42 Approved by: Pilo Ramírez M.D. on 03/02/2019 at 17:44
[2019-03-02 17:37] VITALS: PULSE 89; RESP 14; O2SAT 99
[2019-03-02] MEDS: ALBUTEROL/IPRATROPIUM 3 ML AMPUL INH (17:37)
[2019-03-02] MEDS: KETOROLAC 60 MG/2 ML VIAL IM (18:24)
[2019-03-02] MEDS: ONDANSETRON 4 MG ODT SL (18:32)
--- NOTE | 2019-03-02 19:00 | PC.NURSE ---
Two nurses attempted PIV placement, unsuccessful. Lab to come draw. Dr. Sánchez aware pt does not have PIV.
[2019-03-02 19:10] VITALS: BP 102/61; PULSE 114; TEMP 38.8; O2SAT 95
[2019-03-02 19:22] LABS: Add Manual Diff / Slide Review NO; Basophils Absolute Auto 0 /uL (0-100); Basophils Percent Auto 0.7 % (0-2); Eosinophils Absolute Auto 0 /uL (0-450); Eosinophils Percent Auto 0.5 % (2-4); Hematocrit 38.7 % (36-46); Hemoglobin 12.5 g/dL (12.0-16.0); Lymphocytes Absolute Auto 1500 /uL (1100-4500); Lymphocytes Percent Auto 22.6 % (25-40); Mean Corpuscular HGB Conc 32.3 % (30-36); Mean Corpuscular Hemoglobin 29.3 PG (26-34); Mean Corpuscular Volume 90.8 fL (80-100); Monocytes Absolute Auto 500 /uL (0-900); Monocytes Percent Auto 8.4 % (3-14); Neutrophils Absolute Auto 4400 /uL (1500-7000); Neutrophils Percent Auto 67.8 % (50-75); Platelet Count 288 X10^3/uL (150-400); Red Blood Cell Count 4.26 X10^6/uL (4.0-5.2); Red Cell Distribution Width 14.5 % (11.6-14.8); White Blood Cell Count 6.4 X10^3/uL (4.5-11.0)
[2019-03-02 19:34] LABS: Alanine Aminotransferase 20 IU/L (9-52); Albumin 4.2 g/dL (3.5-5.0); Albumin Globulin Ratio 1.3 (1.0-2.8); Alkaline Phosphatase 54 U/L (38-126); Aspartate Aminotransferase 30 IU/L (14-36); BUN Creatinine Ratio 28.3 (6-22); Bilirubin Total 0.3 mg/dL (0.2-1.3); Blood Urea Nitrogen 17 mg/dL (7-17); Calcium 9.5 mg/dL (8.4-10.2); Carbon Dioxide 27 mmol/L (22-32); Chloride 100 mmol/L (98-107); Estimated Glomerular Filt Rate > 60.0 mL/min (>60); Globulin 3.2 g/dL (1.7-4.1); Glucose 91 mg/dL (70-100); HEMOLYSIS < 15 (0-50); Potassium 3.3 mmol/L (3.4-5.1); Sodium 136 mmol/L (137-145); Total Protein 7.4 g/dL (6.3-8.2)
[2019-03-02 19:37] VITALS: TEMP 37.7
[2019-03-02] MEDS: HYDROCODONE/ACET 5/325 TABLET 1 TAB PO (19:56)
[2019-03-02 20:07] VITALS: BP 100/62; PULSE 96; RESP 16; O2SAT 96
== END 2019-03-02 20:11 | disposition home or self-care (01) ==
PROVIDERS: Emergency Provider Emergency Medicine
DX: J18.1 Lobar pneumonia, unspecified organism (principal)
CPT/HCPCS: 71046; 80053; 83605; 85025; 87040; 94640; 96372; 99283; 99284; J1885

== ENCOUNTER 2019-05-30 14:17 | Emergency (ER) | payer OTHER, MEDICAID, SELFPAY ==
[2019-05-30 14:20] VITALS: BP 119/73; PULSE 90; RESP 14; TEMP 36.3; O2SAT 99
--- NOTE | 2019-05-30 14:27 | ED.PSYCH ---
HPI - Psych General Chief Complaint: Psychiatric Symptoms Stated Complaint: suicidal thoughts Time Seen by Provider: 05/30/19 14:25 Source: patient Mode of arrival: Ambulatory Limitations: no limitations History of Present Illness HPI Narrative: Patient is a 34-year-old female here voluntarily for evaluation of which she states are ?dark thoughts ?patient does have a history of anxiety and depression. Currently sees a therapist. Does see a psychiatrist for her medications. She states that she has been stable on her medications for at least the past 4 months. She has been taking them as directed. States she had 1 beer within the past 24 hours otherwise no other drugs or alcohol. States that at baseline during her menstrual cycle each month she has periods of depression but she states that normally when her menstrual cycle was over she recovers from the depression. She states that over the past month it seems to not have improved even though she was not on her menstrual cycle. She does have a prior history of cutting. She states that many years ago she attempted suicide as a drug overdose. She has been admitted to the hospital in the past for mental health issues. Denies any recent actions to hurt herself. She states that this time a year is very difficult for her. Her approximately 2 years ago in July and around this time would have been their anniversary. She also has a 3-year-old at home. She also has other family issues. Her mother is undergoing treatment for breast cancer. Patient states that she has felt very poorly over the past couple days with regard to her mental health. She states that she has not slept at home for the past couple days because she feels unsafe at home. She states that she has had thoughts about whether not she would start cutting again or potentially take pills in order to kill herself however she has not attempted this. Patient states that she has talked with her therapist. There has been some discussion about changing some of her medications however she states that ?I cannot wait weeks for the pills to take affect ?she states that she needed help now. She called her therapist today who told her to come to the emergency department. Related Data Home Medications Medication Instructions Recorded Confirmed brexpiprazole [Rexulti] See Rx Instructions .ROUTE .COMPLEX 05/30/19 05/30/19 lorazepam 1 mg PO DAILY PRN 05/30/19 05/30/19 propranolol 60 mg PO BEDTIME 05/30/19 05/30/19 venlafaxine 37.5 mg PO QAM 05/30/19 05/30/19 venlafaxine 75 mg PO QAM 05/30/19 05/30/19 Allergies Allergy/AdvReac Type Severity Reaction Status Date / Time penicillin G [PENICILLIN G] Allergy Unknown Verified 03/02/19 17:47 sulfamethoxazole Allergy Unknown Verified 03/02/19 17:47 [From ] trimethoprim [From ] Allergy Unknown Verified 03/02/19 17:47 Review of Systems Constitutional Constitutional: Denies headache(s) ENT Ears, Nose, Mouth, and Throat: Denies headache(s) Cardiovascular Cardiovascular: Denies chest pain and Denies dyspnea Respiratory Respiratory: Denies dyspnea Gastrointestinal Gastrointestinal: Denies abdominal pain, Denies nausea and Denies vomiting Genitourinary Genitourinary: Denies dysuria Musculoskeletal Musculoskeletal: Denies myalgias and Denies arthralgias Integumentary/Breasts Skin/Breast: Denies lesions and Denies rash Neurologic Neurologic: Denies behavioral changes, Denies confusion, Denies headache(s) and Denies memory loss Psychiatric Psychiatric: Reports anxiety, Denies behavioral changes, Denies confusion, Reports depression, Reports hopelessness, Denies memory loss, Denies visual hallucinations, Denies homicidal ideation and Reports suicidal ideation Hematologic/Lymphatic Hematologic/Lymphatic: Denies easy bleeding and Denies easy bruising Patient History Medical History Anxiety (Inactive) Depression (Inactive) Depression (Chronic) Hodgkin lymphoma (Resolved) Social History Smoking Status: Former smoker alcohol intake frequency: 0-2 drinks per day Substance Use Type: does not use and marijuana Exam Initial Vital Signs Initial Vital Signs: Vital Signs Temperature 97.3 F L 05/30/19 14:20 Pulse Rate 90 05/30/19 14:20 Respiratory Rate 14 05/30/19 14:20 Blood Pressure 119/73 05/30/19 14:20 Pulse Oximetry 99 05/30/19 14:20 Const General: cooperative, comfortable and well developed Orientation: alert, awake and oriented x3 HENMT Head: normal to inspection and normocephalic Resp Effort & Inspection: normal respiratory effort Auscultation: clear to auscultation bilaterally Cardio Rate: regular rate Rhythm: regular rhythm GI Inspection: non-distended Palpation: soft and No firm Skin Lesions: no lesions Rashes: no rashes Neuro General: alert, awake and oriented x3 Cognition: normal cognition Speech: speech normal Gait: normal gait Extrem Other: 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 Psych Appearance: grossly normal and well kempt Mental Status: mental status grossly normal Speech and Movement: speech and movement normal, not agitated, speech clear, speech not pressured and not restless Mood: congruent mood, not paranoid, not labile, No angry and No irritable mood Affect: sad and blunted Attitude: cooperative Thought Process: normal Thought Content: normal Judgment: fair Scores GCS [place] coma scale eye opening: Spontaneous [place] coma scale verbal response: Orientated [place] coma scale motor response: Obey commands [place] coma scale total score: 15 Course Orders Ordered: ED Orders 05/30/19 14:02 Acetaminophen Stat Complete Blood Count AUTO DIFF Stat Comprehensive Metabolic Panel Stat Ethanol (ETOH) Stat Salicylate Stat Thyroid Stimulating Hormone Stat 05/30/19 14:30 Urine Drug Screen, Rapid Stat 05/30/19 14:36 Consult to Care Management Stat Discontinued Medications Lorazepam (Ativan) 1 mg PO NOW ONE Stop: 05/30/19 15:44 Last Admin: 05/30/19 16:21 Dose: 1 mg Documented by: SHANTEL Venlafaxine HCl (Effexor) 112.5 mg PO NOW ONE Stop: 05/30/19 15:43 Last Admin: 05/30/19 16:21 Dose: 112.5 mg Documented by: SHANTEL Vital Signs Vital signs: Vital Signs - 8 hr 05/30/19 14:20 Temperature 97.3 F L Pulse Rate 90 Respiratory Rate 14 Blood Pressure 119/73 Pulse Oximetry 99 MDM - Psych Lab Data Attestation: I reviewed the patient's lab results. Result diagrams: 05/30/19 14:02 05/30/19 14:02 Labs: Lab Results 05/30/19 05/30/19 05/30/19 Range/Units 14:02 14:02 14:02 WBC 11.1 H (4.5-11.0) X10^3/uL RBC 4.30 (4.0-5.2) X10^6/uL Hgb 13.1 (12.0-16.0) g/dL Hct 39.5 (36-46) % MCV 91.9 (80-100) fL MCH 30.5 (26-34) PG MCHC 33.2 (30-36) % RDW 14.3 (11.6-14.8) % Plt Count 388 (150-400) X10^3/uL Neut % (Auto) 61.7 (50-75) % Lymph % (Auto) 29.2 (25-40) % [place] % (Auto) 6.0 (3-14) % Eos % (Auto) 2.5 (2-4) % Baso % (Auto) 0.6 (0-2) % Neut # (Auto) 6800 (4107-2667) /uL Lymph # (Auto) 3200 (3204-2487) /uL [place] # (Auto) 700 (0-900) /uL Eos # (Auto) 300 (0-450) /uL Baso # (Auto) 100 (0-100) /uL Sodium 142 (137-145) mmol/L Potassium 4.7 (3.4-5.1) mmol/L Chloride 102 (98-107) mmol/L Carbon Dioxide 30 (22-32) mmol/L BUN 10 (7-17) mg/dL Creatinine 0.60 (0.52-1.04) mg/dL Estimated GFR > 60.0 (>60) mL/min BUN/Creatinine Ratio 16.7 (6-22) Glucose 80 (70-100) mg/dL Calcium 10.3 H (8.4-10.2) mg/dL Total Bilirubin 1.0 (0.2-1.3) mg/dL AST 24 (14-36) IU/L ALT 14 (9-52) IU/L Alkaline Phosphatase 49 (38-126) U/L Total Protein 8.4 H (6.3-8.2) g/dL Albumin 5.0 (3.5-5.0) g/dL Globulin 3.4 (1.7-4.1) g/dL Albumin/Globulin Ratio 1.5 (1.0-2.8) TSH 0.69 (0.47-4.68) uIU/mL Salicylates < 1.0 (<20) mg/dL U Morph 300 ng/mL cutoff (Negative) Ur Oxycodone Screen (Negative) Urine Methadone Screen (Negative) Acetaminophen < 10 L (10-30) ug/mL Ur Barbiturates Screen (Negative) U Tricyclic Antidepress (Negative) Ur Phencyclidine Scrn (Negative) Ur Amphetamines Screen (Negative) U Methamphetamines Scrn (Negative) Ur MDMA Scrn (Ecstasy) (Negative) U Benzodiazepines Scrn (Negative) Urine Cocaine Screen (Negative) U Marijuana (THC) Screen (Negative) Ethyl Alcohol < 10 ( - 10) mg/dL 05/30/19 Range/Units 14:30 WBC (4.5-11.0) X10^3/uL RBC (4.0-5.2) X10^6/uL Hgb (12.0-16.0) g/dL Hct (36-46) % MCV (80-100) fL MCH (26-34) PG MCHC (30-36) % RDW (11.6-14.8) % Plt Count (150-400) X10^3/uL Neut % (Auto) (50-75) % Lymph % (Auto) (25-40) % [place] % (Auto) (3-14) % Eos % (Auto) (2-4) % Baso % (Auto) (0-2) % Neut # (Auto) (5782-8968) /uL Lymph # (Auto) (7036-5298) /uL [place] # (Auto) (0-900) /uL Eos # (Auto) (0-450) /uL Baso # (Auto) (0-100) /uL Sodium (137-145) mmol/L Potassium (3.4-5.1) mmol/L Chloride (98-107) mmol/L Carbon Dioxide (22-32) mmol/L BUN (7-17) mg/dL Creatinine (0.52-1.04) mg/dL Estimated GFR (>60) mL/min BUN/Creatinine Ratio (6-22) Glucose (70-100) mg/dL Calcium (8.4-10.2) mg/dL Total Bilirubin (0.2-1.3) mg/dL AST (14-36) IU/L ALT (9-52) IU/L Alkaline Phosphatase (38-126) U/L Total Protein (6.3-8.2) g/dL Albumin (3.5-5.0) g/dL Globulin (1.7-4.1) g/dL Albumin/Globulin Ratio (1.0-2.8) TSH (0.47-4.68) uIU/mL Salicylates (<20) mg/dL U Morph 300 ng/mL cutoff Negative (Negative) Ur Oxycodone Screen Negative (Negative) Urine Methadone Screen Negative (Negative) Acetaminophen (10-30) ug/mL Ur Barbiturates Screen Negative (Negative) U Tricyclic Antidepress Negative (Negative) Ur Phencyclidine Scrn Negative (Negative) Ur Amphetamines Screen Negative (Negative) U Methamphetamines Scrn Negative (Negative) Ur MDMA Scrn (Ecstasy) Negative (Negative) U Benzodiazepines Scrn Positive H (Negative) Urine Cocaine Screen Negative (Negative) U Marijuana (THC) Screen Negative (Negative) Ethyl Alcohol ( - 10) mg/dL Point of Care Testing Test Results Negative Urine Dip Bedside Urine Glucose Negative Bedside Urine Bilirubin - Negative Bedside Urine Ketone - Negative Urine Specific [place] 1.010 Bedside Urine Occult Blood - Negative Bedside Urine pH 6.5 Bedside Urine Protein - Negative Bedside Urine Urobilinogen - Negative Bedside Urine Nitrite - Negative Bedside Urine Leukocytes - Negative Esterase MDM Narrative Medical decision making narrative: Patient has a distant history of non-Hodgkin's lymphoma. She states she is in remission for this. She is not currently undergoing any treatment. No signs of toxic ingestion. Labs unremarkable. Patient is medically cleared. Social work consult placed and will evaluate patient emergency department. Patient is medically cleared. She was seen by social work who is working on finding voluntary placement. Care turned over to night provider at change of shift. Discharge Plan Departure Prescriptions: No Action venlafaxine 37.5 mg capsule,extended release 24hr 37.5 mg PO QAM RF: 0 venlafaxine 75 mg capsule,extended release 24hr 75 mg PO QAM RF: 0 lorazepam 1 mg tablet 1 mg PO DAILY PRN (Reason: Panic Attack(S)) RF: 0 Rexulti 0.25 mg tablet See Rx Instructions .ROUTE .COMPLEX RF: 0 propranolol 60 mg Capsule,Extended Release 24 Hr 60 mg PO BEDTIME RF: 0
--- NOTE | 2019-05-30 14:37 | PC.NURSE ---
Had patient change into disposable scrubs and placed her belongings in locked cabinet Mother is present in patient's room
[2019-05-30 14:45] LABS: Ur Creatinine Normal (Normal); Ur Specific Gravity Normal (Normal); Urine pH Normal (Normal)
[2019-05-30 14:46] LABS: UR Morphine/Opiate cutoff 300 Negative (Negative); Urine Amphetamines Negative (Negative); Urine Barbiturates Negative (Negative); Urine Benzodiazepines Positive (Negative); Urine Cocaine Negative (Negative); Urine MDMA Negative (Negative); Urine Methadone Negative (Negative); Urine Methamphetamines Negative (Negative); Urine Oxycodone Negative (Negative); Urine Phencyclidine Negative (Negative); Urine Tetrahydrocannabinol Negative (Negative); Urine Tricyclic Antidepressant Negative (Negative)
[2019-05-30 14:49] LABS: Add Manual Diff / Slide Review NO; Basophils Absolute Auto 100 /uL (0-100); Basophils Percent Auto 0.6 % (0-2); Eosinophils Absolute Auto 300 /uL (0-450); Eosinophils Percent Auto 2.5 % (2-4); Hematocrit 39.5 % (36-46); Hemoglobin 13.1 g/dL (12.0-16.0); Lymphocytes Absolute Auto 3200 /uL (1100-4500); Lymphocytes Percent Auto 29.2 % (25-40); Mean Corpuscular HGB Conc 33.2 % (30-36); Mean Corpuscular Hemoglobin 30.5 PG (26-34); Mean Corpuscular Volume 91.9 fL (80-100); Monocytes Absolute Auto 700 /uL (0-900); Neutrophils Absolute Auto 6800 /uL (1500-7000); Neutrophils Percent Auto 61.7 % (50-75); Platelet Count 388 X10^3/uL (150-400); Red Cell Distribution Width 14.3 % (11.6-14.8); White Blood Cell Count 11.1 X10^3/uL (4.5-11.0)
--- NOTE | 2019-05-30 14:58 | PC.NURSE ---
pt aware of our procedure about labs, urine and safety for her. is very cooperative, and following directions. in room
[2019-05-30 15:01] LABS: Acetaminophen < 10 ug/mL (10-30); Alanine Aminotransferase 14 IU/L (9-52); Albumin Globulin Ratio 1.5 (1.0-2.8); Alkaline Phosphatase 49 U/L (38-126); Aspartate Aminotransferase 24 IU/L (14-36); BUN Creatinine Ratio 16.7 (6-22); Blood Urea Nitrogen 10 mg/dL (7-17); Calcium 10.3 mg/dL (8.4-10.2); Carbon Dioxide 30 mmol/L (22-32); Chloride 102 mmol/L (98-107); Estimated Glomerular Filt Rate > 60.0 mL/min (>60); Ethanol (ETOH) < 10 mg/dL; Globulin 3.4 g/dL (1.7-4.1); Glucose 80 mg/dL (70-100); HEMOLYSIS < 15 (0-50); Potassium 4.7 mmol/L (3.4-5.1); Salicylate < 1.0 mg/dL (<20); Sodium 142 mmol/L (137-145); Total Protein 8.4 g/dL (6.3-8.2)
--- NOTE | 2019-05-30 15:02 | PC.NURSE ---
Mother is at bedside. Door is open. Patient verbally agrees not to harm self or others while in ED.
[2019-05-30 15:47] LABS: Thyroid Stimulating Hormone 0.69 uIU/mL (0.47-4.68)
--- NOTE | 2019-05-30 15:49 | PC.NURSE ---
Patient meeting with care management players [employer] representative in the room
--- NOTE | 2019-05-30 16:02 | PC.NURSE ---
Care management still in room consulting with patient who is laying down on bed
--- NOTE | 2019-05-30 16:15 | PC.NURSE ---
Care management still in room meeting with patient
[2019-05-30] MEDS: LORazepam 0.5 MG TABLET 1 MG PO ×2 (16:21→19:35)
[2019-05-30] MEDS: VENLAFAXINE 37.5 MG TABLET 112.5 MG PO (16:21)
--- NOTE | 2019-05-30 16:30 | PC.NURSE ---
Care management completed evaluation and now patient's mother back in room with her
--- NOTE | 2019-05-30 16:50 | CM.SWNOTE ---
Addendum entered by Becky Navas R.N. 05/30/19 18:25: CM contacted [facility] and [facility] to check about open beds for adult female. CM sent clinicals for their review. CM called [phone] and spoke with Jaz in intake at [facility] and they will accept patient at 8pm today 05/30/2019. ED setting up transport for patient. CM notified patient of being accepted to [facility] and patient stated understanding. Becky Navas RN. Original Note: MANAGER PLAN Note: Received call from ED staff requesting MANAGER PLAN consult on 34yr old female that was brought into [facility] ED with suicidal ideation. No PCP indicated. Current [facility] counselor is Elena Martin ph# [phone]. Primary payor is 1)[facility] ID# [id number]. Reviewed records, met with patient explained MANAGER PLAN role. Patient reports that her Mother/Kristi brought her to the ED because she has been having worsening thoughts of suicide. Patient continues to report suicidal thoughts that she agrees have been worsening over the last month. Patient's plan is to overdose on prescribed medication. Patient has no access to firearms. Patient resides with 3yr old son/Anmol. Patient's spouse 2yrs ago on July 10. Per patient, it was an accidental overdose. Patient reports that she found him unconscious and attempted CPR. Patient was unsuccessful. This is also the time of year that they would have had their wedding anniversary. Patient attributes much of the past hardships with her current suicidal ideation. Currently, patient reports that her son/Marybel is with a good friend in [place]. If patient were to get placed in inpatient psychiatric unit, son will stay with Kristi/patient's mother and or close family. No concerns at this time for well being of child. Patient voluntary admits to wanting to go to inpatient psychiatric placement. Patient has active involvement with synagogue and therapist at [facility] in [place]. Patient currently takes venlafaxine 112.5mg a day. Patient also has lorazepam 1mg tablet as needed (see medication list for update). Patient has had one previous inpatient psychiatric placement approximately 12yrs ago in [place]. At this time MANAGER PLAN will attempt inpatient psychiatric placement for suicidal ideation. Patient would benefit from medication stabilization and therapy to manage coping skills given her unfortunate history. P: Attempting inpatient psychiatric placement. [facility] MANAGER PLAN - Laboratory Aide Assessment MANAGER PLAN - Laboratory Aide Assessment Start: 05/30/19 16:41 Freq: Status: Active Protocol: Document 05/30/19 16:42 KJS (Rec: 05/30/19 16:50 KJS [id number]) MANAGER PLAN/Laboratory Aide Assessment Time Spent with Patient Start date 05/30/19 Total Time With Patient 90 minutes Mental Health Screening Include Onset, Duration, Intensity Presenting Problem Suicidal thoughts Precipitating Event(s) Patient has h/o depression which led too current triggers . Current Behavioral Health Provider(s) Elena Martin ([place]) [phone] Include Facility, Provider, Ph. # [phone] Psych. Hx Mental Health and Chemical H/O major depression and Dependency anxiety Psychiatric Hospitalizations (date(s)/ Previous psychiatric location) hospitalization approximately 12 years ago in [place]. Support System(s) Kristi Mckeon (Mother) School/Work Works full-time, not currently enrolled in school. Substance Abuse Screening Include Onset, Duration, Intensity Presenting Problem No substance abuse indicated. Mental Status Orientation (Person/Place/Time) Alert and Oriented x3 Affect appropriate Thought Content - Specify/Describe None indicated Obsessions, Delusions, Hallucinations Thought Processes (Qdceosx-Qbgepagq-Jnht Logical Yiwllkch-Qmtruqrb-Jmbbjzrosu- Phrtkoqnhnrbsx-Xupxndp-Eelfworljsth- Thought Blocking) Concentration (Intact-Impaired) Intact Attention (Intact-Impaired) Intact Behavior (Appropriate-Inappropriate) Appropriate Risk Assessment Suicidal Ideation (Plan) Yes: Overdose of prescribed medications Homicidal Ideation (Plan) No Intervention Intervention See MANAGER PLAN note for details.
[2019-05-30] MEDS: ACETAMINOPHEN 325 MG TABLET 975 MG PO (18:33)
[2019-05-30 18:37] VITALS: BP 124/69; PULSE 112; RESP 16; TEMP 36.3; O2SAT 98
== END 2019-05-30 19:43 ==
PROVIDERS: Emergency Provider Emergency Medicine
DX: R45.851 Suicidal ideations (principal)
CPT/HCPCS: 36415; 80053; 80305; 80320; 80329; 81003; 81025; 84443; 85025; 99284; G0480